=== PATIENT | male | born 1945 | race Caucasian/White ===

== ENCOUNTER 2016-07-31 15:52 | Emergency (ER) | payer MEDICARE ==
[2016-07-31] MEDS ORDERED: CEPHALEXIN 250 MG CAPSULE PO STA (16:23)
[2016-07-31] MEDS ORDERED: CEPHALEXIN 250 MG CAPSULE PO ONE (16:29)
[2016-07-31] MEDS ORDERED: BACITRACIN OINT TOP STA (17:28)
== END 2016-07-31 17:43 | disposition home or self-care (01) ==
DX: L03.115 Cellulitis of right lower limb (principal); E11.621 Type 2 diabetes mellitus with foot ulcer; L97.519 Non-pressure chronic ulcer of other part of right foot with unspecified severity; E11.65 Type 2 diabetes mellitus with hyperglycemia; E11.42 Type 2 diabetes mellitus with diabetic polyneuropathy; E78.00 Pure hypercholesterolemia, unspecified; I25.10 Atherosclerotic heart disease of native coronary artery without angina pectoris; I10 Essential (primary) hypertension; Z79.82 Long term (current) use of aspirin; Z79.4 Long term (current) use of insulin; Z87.891 Personal history of nicotine dependence
CPT/HCPCS: 73630; 99283; 99284; A9270

== ENCOUNTER 2017-04-13 15:12 | Emergency (ER) | payer MEDICARE ==
[2017-04-13 15:35] VITALS: BP 145/85
[2017-04-13 17:56] LABS: BASOPHILS # (AUTO) 0.1 10^3/uL (0.0-0.1); EOSINOPHILS # (AUTO) 0.1 10^3/uL (0.0-0.7); HCT - HEMATOCRIT 46.1 % (42.0-52.0); HGB - HEMOGLOBIN 15.1 g/dL (14.0-18.0); LYMPHOCYTES # (AUTO) 1.7 10^3/uL (1.5-3.5); LYMPHOCYTES % (AUTO) 26.9 %; MEAN CORPUSCULAR HEMOGLOBIN 28.6 pg (27.0-31.0); MEAN CORPUSCULAR HGB CONC 32.7 g/dL (32.0-36.0); MEAN CORPUSCULAR VOLUME 87.5 fL (80.0-94.0); MEAN PLATELET VOLUME 8.5 fL (7.4-11.4); MONOCYTES # (AUTO) 0.4 10^3/uL (0.0-1.0); MONOCYTES % (AUTO) 6.5 %; NEUTROPHILS # (AUTO) 4.1 10^3/uL (1.5-6.6); NEUTROPHILS % (AUTO) 63.6 %; RED BLOOD COUNT 5.26 10^6/uL (4.70-6.10); RED CELL DISTRIBUTION WIDTH 13.1 % (12.0-15.0); UNCORRECTED WHITE BLOOD COUNT 6.5 x10^3/uL; WHITE BLOOD COUNT 6.5 x10^3/uL (4.8-10.8)
[2017-04-13 18:08] LABS: ALBUMIN/GLOBULIN RATIO 1.4 (1.0-2.2); BILIRUBIN,TOTAL 0.9 mg/dL (0.2-1.0); BUN - BLOOD UREA NITROGEN 16 mg/dL (6-20); CALCIUM 9.5 mg/dL (8.5-10.3); CARBON DIOXIDE - CO2 31 mmol/L (21-32); CHLORIDE 96 mmol/L (101-111); GFR - MDRD 74 (>89); GLUCOSE 333 mg/dL (70-100); LIPASE 29 U/L (22-51); MAGNESIUM 1.9 mg/dL (1.7-2.8); POTASSIUM 4.4 mmol/L (3.5-5.0); SODIUM 136 mmol/L (135-145); TOTAL PROTEIN 7.4 g/dL (6.7-8.2)
[2017-04-13 18:13] LABS: HEMOGLOBIN A1C 2.04 g/dL
--- NOTE | 2017-04-13 19:04 | ED Physician Documentation ---
PD HPI ALTERED MENTAL STATUS - Stated complaint Stated Complaint: EVALUATION - Chief complaint Chief Complaint: General - History obtained from History obtained from: Patient PD PAST MEDICAL HISTORY - Past Medical History Cardiovascular: Hypertension, High cholesterol, OR Respiratory: Pneumonia Endocrine/Autoimmune: Type 2 diabetes - Past Surgical History Past Surgical History: Yes General: Splenectomy, Other Ortho: Other Cardiovascular: Coronary stent - Present Medications Home Medications: Ambulatory Orders Medication Instructions Recorded Confirmed Aspirin [Aspir 81] 81 mg PO DAILY 08/21/13 08/20/16 Atenolol 50 mg PO DAILY 08/21/13 08/20/16 Clopidogrel [Plavix] 75 mg PO ONCE 08/21/13 08/20/16 Insulin Glargine,Hum.rec.anlog 50 unit SQ QPM 08/21/13 08/20/16 [Lantus] Metformin HCl [Metformin HCl ER] 500 mg PO BID 08/21/13 08/20/16 Atorvastatin Calcium [Lipitor] 40 mg PO QPM 08/20/16 08/20/16 Docusate Sodium 100 mg PO BID 08/20/16 08/20/16 Gabapentin [Neurontin] 300 mg PO TID 08/20/16 08/20/16 Lisinopril [Prinivil] 10 mg PO DAILY 08/20/16 08/20/16 Polyethylene Glycol 3350 [Miralax] 17 gm PO DAILY PRN 08/20/16 08/20/16 oxyCODONE [Roxicodone] 1 - 2 tab PO Q4H PRN 08/20/16 08/20/16 - Allergies Allergies/Adverse Reactions: Allergies Allergy/AdvReac Type Severity Reaction Status Date / Time codeine [Codeine] Allergy Mild Rash Verified 04/13/17 15:36 Barbiturates AdvReac Unknown Verified 04/13/17 15:36 - Social History Does the pt smoke?: No Smoking Status: Former smoker Does the pt drink ETOH?: No Does the pt have substance abuse?: No - Immunizations Immunizations are current?: Yes - POLST Patient has POLST: Yes Results - Vitals Vitals: Oxygen O2 Source Room air - Labs Labs: Laboratory Tests 04/13/17 04/13/17 04/13/17 15:39 17:49 17:49 WBC 6.5 RBC 5.26 Hgb 15.1 Hct 46.1 MCV 87.5 MCH 28.6 MCHC 32.7 RDW 13.1 Plt Count 221 MPV 8.5 Neut # 4.1 Lymph # 1.7 Karnes # 0.4 Eos # 0.1 Baso # 0.1 Absolute Nucleated RBC 0.00 Nucleated RBC % 0.0 Sodium 136 Potassium 4.4 Chloride 96 L Carbon Dioxide 31 Anion Gap 9.0 BUN 16 Creatinine 1.0 Estimated GFR (MDRD) 74 L Glucose 333 H POC Whole Bld Glucose 316 H Glycated Hemoglobin Estim Average Glucose Calcium 9.5 Magnesium 1.9 Total Bilirubin 0.9 AST 12 ALT 14 Alkaline Phosphatase 65 Total Creatine Kinase 25 Total Protein 7.4 Albumin 4.3 Globulin 3.1 Albumin/Globulin Ratio 1.4 Lipase 29 Ethyl Alcohol < 5.0 04/13/17 17:49 WBC RBC Hgb Hct MCV MCH MCHC RDW Plt Count MPV Neut # Lymph # Karnes # Eos # Baso # Absolute Nucleated RBC Nucleated RBC % Sodium Potassium Chloride Carbon Dioxide Anion Gap BUN Creatinine Estimated GFR (MDRD) Glucose POC Whole Bld Glucose Glycated Hemoglobin 13.5 H Estim Average Glucose 341 H Calcium Magnesium Total Bilirubin AST ALT Alkaline Phosphatase Total Creatine Kinase Total Protein Albumin Globulin Albumin/Globulin Ratio Lipase Ethyl Alcohol PD MEDICAL DECISION MAKING - ED course Complexity details: considered differential (he was just leaving the ER when I went into room (he had had long wait in waiting room) and he said he was leaving to catch bus. ), d/w patient Departure - Departure Disposition: 07 Against Medical Advice Clinical Impression: Homelessness Diabetes mellitus with hyperglycemia Qualifiers: Diabetes mellitus type: type 2 Diabetes mellitus [facility] insulin use: with [facility] use Qualified Code(s): E11.65 - Type 2 diabetes mellitus with hyperglycemia Condition: Stable Record reviewed to determine appropriate education?: Yes Discharge Date/Time: 04/13/17 19:10
== END 2017-04-13 19:10 | disposition left against medical advice (07) ==
LOC: ED 15:12
DX: E11.65 Type 2 diabetes mellitus with hyperglycemia (principal); Z79.4 Long term (current) use of insulin; Z59.0 Homelessness; I10 Essential (primary) hypertension; E03.9 Hypothyroidism, unspecified; I25.2 Old myocardial infarction; Z95.5 Presence of coronary angioplasty implant and graft; Z87.891 Personal history of nicotine dependence; Z90.81 Acquired absence of spleen; Z79.82 Long term (current) use of aspirin
CPT/HCPCS: 36415; 80053; 82550; 83036; 83690; 83735; 85025; 99283; G0480; 80320

== ENCOUNTER 2018-04-28 09:04 | Outpatient (CLI) | payer MEDICARE | END 2018-04-28 09:05 | disposition short-term general hospital (02) | LOC: EMS 09:04 | PROVIDERS: ATTEND Surgery | DX: M79.605 Pain in left leg (principal); R73.09 Other abnormal glucose; Z89.512 Acquired absence of left leg below knee | CPT/HCPCS: A0425; A0427 ==

== ENCOUNTER 2019-12-04 16:35 | Outpatient (CLI) | payer MEDICARE | END 2019-12-04 16:36 | disposition E | LOC: EMS 16:35 | PROVIDERS: ATTEND Surgery ==